=== PATIENT | male | born 1960 | race Caucasian/White ===

== ENCOUNTER 2016-07-10 11:02 | Emergency (ER) | payer SELFPAY ==
[~2016-07-10] VITALS: Ht 195.6 cm; Wt 112.4 kg
[2016-07-10 11:03] VITALS: BP 150/94
[2016-07-10] MEDS ORDERED: METF500T4 PO (12:16)
[2016-07-10] MEDS ORDERED: GLIP10TA13 PO (12:18)
[2016-07-10] MEDS ORDERED: SODIUM CHLORIDE 0.9% 1,000ML IVBOLUS ONE (12:30)
[2016-07-10] MEDS ORDERED: SODIUM CHLORIDE FLUSH 10ML SYR IVF ONE (12:30)
[2016-07-10 12:40] LABS: ASPARTATE AMINO TRANSFERASE 20 U/L (15-37); BLOOD UREA NITROGEN 14 mg/dL (7-18)
[2016-07-10 12:46] LABS: IS PT STATUS REG ER OR PRE ER? YES
== END 2016-07-10 14:06 | disposition home or self-care (01) ==
LOC: ED 14:00
DX: R42 Dizziness and giddiness (principal); R11.0 Nausea; I10 Essential (primary) hypertension; F17.200 Nicotine dependence, unspecified, uncomplicated
CPT/HCPCS: 36415; 70450; 80053; 84484; 85025; 93005; 96360; 99285; J7030

== ENCOUNTER 2019-11-19 01:55 | Emergency (ER) | payer MEDICAID, OTHER ==
[~2019-11-19] VITALS: Ht 195.6 cm; Wt 109.6 kg
[~2019-11-19 01:55] MED LIST: ATEN25TA PO; GLIP10TA13 PO; METF500T17 PO
--- NOTE | 2019-11-19 02:22 | NUR ---
PT CAME INTO ED DUE TO GIVING SELF STEROID SHOT IN THIGH. PT STATES AFTER SHOT HIS LEFT THIGH HAS HURT FOR 3 DAYS SINCE AND IS SWELLING AND THE LUMP HAS NOT DECREASED. PT TO NORCO 10 MG EARLIER THIS EVENING. CMS INTACT, PULSES INTACT, SENSATION INTACT. WCTM. L[facility] AT FOR EVAL AND POC. PT NAD, PLACED ON SPO2/BP MONITORING.
[2019-11-19 02:51] LABS: MEAN CORPUSCULAR HEMOGLOBIN 30.9 pg (27.5-34.5); MEAN CORPUSCULAR HGB CONC 32.5 g/dL (33.2-36.2); MEAN CORPUSCULAR VOLUME 95.1 fL (81-97); MEAN PLATELET VOLUME 9.5 fL (7.4-10.4); PLATELET COUNT 199 x10^3/uL (130-400); RED BLOOD COUNT 5.48 x10^6/uL (4.38-5.82); RED CELL DISTRIBUTION WIDTH 13.6 % (9.4-14.8)
[2019-11-19 03:04] LABS: ALANINE AMINOTRANSFERASE 30 U/L (12-78); ALBUMIN 3.3 g/dL (3.4-5.0); ANION GAP 6 mmol/L (5-15); CALCIUM 8.8 mg/dL (8.5-10.1); CHLORIDE 106 mmol/L (98-107)
[2019-11-19 03:07] LABS: ALKALINE PHOSPHATASE 50 U/L (45-117); BILIRUBIN,TOTAL 0.6 mg/dL (0.2-1.0); CREATININE 0.66 mg/dL (0.7-1.3); TOTAL PROTEIN 6.9 g/dL (6.4-8.2)
[2019-11-19 03:32] LABS: BASOPHILS # (AUTO) 0.07 x10^3/uL (0-0.1); BASOPHILS % (AUTO) 0 % (0-1); EOSINOPHILS % (AUTO) 3 % (1-7); LYMPHOCYTES % (AUTO) 15 % (22-44); MD SCAN; MONOCYTES # (AUTO) 1.47 x10^3/uL (0.2-0.8); MONOCYTES % (AUTO) 9 % (2-9); NEUTROPHILS # (AUTO) 12.48 x10^3/uL (1.8-6.8); NEUTROPHILS % (AUTO) 73 % (42-75)
--- NOTE | 2019-11-19 03:42 | NUR ---
pt back from ct, resting on gurney, NAD, VSS, given ice water for comfort. denies additional needs, WCTM. waiting for CT read
[2019-11-19] MEDS ORDERED: OMNIPAQUE 350 MG/ML, 100ML BOTTLE ONE (03:44)
--- NOTE | 2019-11-19 04:30 | NUR ---
late entry d/t pt care: pt ambulated to and from restroom, given ice water for comfort. waiting on ct read, no change in condition, wctm.
[2019-11-19] MEDS ORDERED: CEFTRIAXONE PMX 1GM/50ML 50 ML ONE (04:57)
[2019-11-19] MEDS ORDERED: CEFTRIAXONE PMX 1GM/50ML 50 ML IV ONE (05:00)
--- NOTE | 2019-11-19 05:01 | NUR ---
pt medicated per mar, nad, skin warm and dry, denies additional needs at this time. VSS. pt to be dc after medicated. wctm.
[2019-11-19 05:06] VITALS: BP 135/82
--- NOTE | 2019-11-19 05:30 | NUR ---
LATE ENTRY D/T PT CARE: Patient given discharge instructions and they have confirmed that they understand the instructions. Patient ambulatory with steady gait. VSS, NAD, DENIES ADDITIONAL QUESTIONS OR NEEDS AT THIS TIME. NO BELONGINGS LEFT IN ROOM AFTER DC
== END 2019-11-19 05:37 | disposition home or self-care (01) ==
LOC: ED 02:29
DX: M79.652 Pain in left thigh (principal); L03.116 Cellulitis of left lower limb; D72.829 Elevated white blood cell count, unspecified; M60.9 Myositis, unspecified; E11.65 Type 2 diabetes mellitus with hyperglycemia; F17.200 Nicotine dependence, unspecified, uncomplicated; I10 Essential (primary) hypertension
CPT/HCPCS: 36415; 73701; 80053; 83605; 84145; 85025; 87040; 96365; 99285; J0696; Q9967

== ENCOUNTER 2020-01-30 02:38 | Emergency (ER) | payer MEDICAID ==
[~2020-01-30] VITALS: Ht 193 cm; Wt 109.6 kg
[2020-01-30 02:43] VITALS: BP 175/92
[2020-01-30] MEDS ORDERED: CLINDAMYCIN 300 MG CAPSULE PO ONE (03:30)
[2020-01-30] MEDS ORDERED: CLINDAMYCIN 300 MG CAPSULE ONE (03:33)
--- NOTE | 2020-01-30 03:38 | NUR ---
PT MEDICATED PER MAR. DENIES ANY FURTHER NEEDS OR CONCERNS, CALL LIGHT IN REACH.
== END 2020-01-30 03:51 | disposition home or self-care (01) ==
LOC: ED 03:15
DX: K04.7 Periapical abscess without sinus (principal); E11.65 Type 2 diabetes mellitus with hyperglycemia; F17.210 Nicotine dependence, cigarettes, uncomplicated
CPT/HCPCS: 99283; 99406

== ENCOUNTER 2020-04-28 22:23 | Emergency (ER) | payer MEDICAID ==
[~2020-04-28] VITALS: Ht 195.6 cm; Wt 108.5 kg
[2020-04-28 22:28] VITALS: BP 167/91
--- NOTE | 2020-04-28 22:43 | NUR ---
CC OF PAIN/SWELLING OF RIGHT UPPER LATERAL THIGH AFTER INJECTION FROM TESTORONE ON FRIDAY. NO REDNESS NOTED AT THIS TIME.
[2020-04-28] MEDS ORDERED: CEFAZOLIN 1,000 MG ONE (23:16)
[2020-04-28] MEDS ORDERED: CEFAZOLIN 1,000 MG IM ONE (23:30)
== END 2020-04-28 23:48 | disposition home or self-care (01) ==
LOC: ED 23:15
DX: L03.115 Cellulitis of right lower limb (principal); M79.651 Pain in right thigh; M79.89 Other specified soft tissue disorders; I10 Essential (primary) hypertension; E11.65 Type 2 diabetes mellitus with hyperglycemia
CPT/HCPCS: 96372; 99283; J0690

== ENCOUNTER 2020-08-31 16:43 | Emergency (ER) | payer MEDICAID ==
[~2020-08-31] VITALS: Ht 195.6 cm; Wt 105.7 kg
[2020-08-31 16:45] VITALS: BP 183/90
--- NOTE | 2020-08-31 17:46 | NUR ---
PER ER REGISTRATION PT CAME TO WINDOW AND WISHES TO LEAVE. ATTEMPT TO CALL PT FRO LOBBY. PT SEEN PHYSICALLY LEAVING LOBBY.
== END 2020-08-31 17:55 | disposition left against medical advice (07) ==
LOC: ED 17:00
DX: M54.2 Cervicalgia (principal); Z53.21 Procedure and treatment not carried out due to patient leaving prior to being seen by health care provider

== ENCOUNTER 2020-09-01 15:05 | Emergency (ER) | payer MEDICAID ==
[~2020-09-01] VITALS: Ht 195.6 cm; Wt 104.6 kg
--- NOTE | 2020-09-01 15:21 | NUR ---
PT AMBULATED TO ROOM WITH A STEADY GAIT.
--- NOTE | 2020-09-01 15:33 | NUR ---
pt in with C/O of lump on left side of neck. pt states lump has been present since 05/24/2020 following second covid vaccine. pt states that his friend looked online and found lump as a common side effect of vaccine.
--- NOTE | 2020-09-01 15:50 | NUR ---
PT AMBULATING TO BATHROOM WITH A STEADY GAIT.
--- NOTE | 2020-09-01 15:52 | NUR ---
LAB AT BEDSIDE.
[2020-09-01 15:58] LABS: BASOPHILS % (AUTO) 1 % (0-1); EOSINOPHILS % (AUTO) 3 % (1-7); LYMPHOCYTES % (AUTO) 23 % (22-44); MEAN CORPUSCULAR HEMOGLOBIN 31.6 pg (27.5-34.5); MEAN CORPUSCULAR HGB CONC 33.3 g/dL (33.2-36.2); MEAN PLATELET VOLUME 9.5 fL (7.4-10.4); MONOCYTES % (AUTO) 10 % (2-9); NEUTROPHILS % (AUTO) 63 % (42-75); PLATELET COUNT 233 x10^3/uL (130-400); RED BLOOD COUNT 5.56 x10^6/uL (4.38-5.82); RED CELL DISTRIBUTION WIDTH 14.3 % (9.4-14.8)
[2020-09-01 16:12] LABS: ANION GAP 5 mmol/L (5-15); CHLORIDE 107 mmol/L (98-107); CREATININE 0.85 mg/dL (0.7-1.3)
--- NOTE | 2020-09-01 16:37 | NUR ---
NEED IV IN PLACE FOR CT EXAM
--- NOTE | 2020-09-01 17:06 | NUR ---
advised CT that IV is in place.
--- NOTE | 2020-09-01 17:26 | NUR ---
pt out of room to CT
--- NOTE | 2020-09-01 17:41 | NUR ---
Returned from CT
[2020-09-01] MEDS ORDERED: OMNIPAQUE 350 MG/ML, 100ML BOTTLE ONE (17:45)
--- NOTE | 2020-09-01 17:51 | NUR ---
pt out of room to bathroom
--- NOTE | 2020-09-01 18:02 | NUR ---
meal tray ordered for pt.
[2020-09-01 18:05] VITALS: BP 142/75
--- NOTE | 2020-09-01 18:55 | NUR ---
Report given to Jay
== END 2020-09-01 19:39 ==
LOC: ED 15:32
DX: R22.1 Localized swelling, mass and lump, neck (principal); I10 Essential (primary) hypertension; E11.9 Type 2 diabetes mellitus without complications; F17.200 Nicotine dependence, unspecified, uncomplicated
CPT/HCPCS: 36415; 70491; 80048; 85025; 99285; Q9967

== ENCOUNTER 2020-09-29 12:17 | Outpatient (CLI) | payer MEDICAID ==
[2020-09-29] MEDS ORDERED: LIDOCAINE-MPF 1%, 5ML ONE (13:12)
== END 2020-09-29 23:59 | disposition home or self-care (01) ==
LOC: RAD 12:17
PROVIDERS: ATTEND Internal Medicine Hematology & Oncology
DX: R22.1 Localized swelling, mass and lump, neck (principal)
CPT/HCPCS: 20206; 38505; 76942; 88305